=== PATIENT | female | born 1935 | race Hispanic/Latino ===

== ENCOUNTER 2018-01-23 08:02 | Inpatient (IN) | payer MEDICARE ==
[2018-01-23] MEDS ORDERED: ASPIRIN PO ONE (08:13)
[2018-01-23 08:42] LABS: BUN/Creatinine Ratio 17; Blood Urea Nitrogen 17 mg/dL (7-17); Calcium 8.9 mg/dL (8.4-10.2); Hemolysis Index 14
[2018-01-23 08:53] LABS: Basophils % (Auto) 0.5 % (0.0-1.8); Eosinophils # (Auto) 0.1 K/mm3 (0.0-0.4); Eosinophils % (Auto) 2.5 % (0.0-4.3); Hematocrit 44.5 % (30.3-42.9); Hemoglobin 15.4 gm/dl (10.1-14.3); Lymphocytes # (Auto) 1.9 K/mm3 (1.2-5.4); Lymphocytes % (Auto) 33.5 % (13.4-35.0); Mean Corpuscular HGB Conc 35 % (30-34); Mean Corpuscular Hemoglobin 32 pg (28-32); Mean Corpuscular Volume 93 fl (79-97); Monocytes # (Auto) 0.5 K/mm3 (0.0-0.8); Monocytes % (Auto) 8.1 % (0.0-7.3); Platelet Count 168 K/mm3 (140-440); Red Blood Count 4.79 M/mm3 (3.65-5.03); Red Cell Distribution Width 13.7 % (13.2-15.2)
--- NOTE | 2018-01-23 09:17 | Emergency Department Report ---
HPI - General Chief Complaint: Dizziness Time Seen by Provider: 01/23/18 08:41 - HPI HPI: 82-year-old female presents to the emergency department from home with complaint of some vertigo that has been going on since yesterday but worsened this morning. She took some meclizine for her symptoms with some transient relief. She says she noticed it was real bad when she was unable to even read the time on her cell phone which appeared to be spinning. She denies any headache, slurred speech, chest pain, shortness of breath but does have some dizziness and/or weakness. She has a past medical history of asthma, hypertension, GERD and does have a previous episode of this vertigo. She follows with Dr. Queen for primary care and Dr. Shaw for cardiology. She takes Prilosec, Celexa, Coreg and Benicar but did not take these medications yet today. ED Past Medical Hx - Medications Home Medications: Home Medications Medication Instructions Recorded Confirmed Last Taken Type Carvedilol [Coreg] 6.25 mg PO BID 01/23/18 01/23/18 01/22/18 History Citalopram [celeXA] 20 mg PO QDAY 01/23/18 01/23/18 01/22/18 History Meclizine [Antivert] 25 mg PO BID PRN 01/23/18 01/23/18 01/23/18 History Olmesartan/Hydrochlorothiazide 1 tab PO QDAY 01/23/18 01/23/18 01/22/18 History [Benicar HCT 20-12.5 mg] Omeprazole Magnesium [PriLOSEC Otc] 20 mg PO QDAY 01/23/18 01/23/18 Unknown History Trazodone HCl 50 mg PO HS 01/23/18 01/23/18 Unknown History ED Review of Systems ROS: Stated complaint: VERTIGO Other details as noted in HPI Comment: All other systems reviewed and negative Constitutional: weakness. denies: chills, fever Eyes: denies: eye pain, eye discharge, vision change ENT: denies: ear pain, throat pain Respiratory: denies: cough, shortness of breath, wheezing Cardiovascular: denies: chest pain, palpitations Gastrointestinal: denies: abdominal pain, nausea, diarrhea Genitourinary: denies: urgency, dysuria, discharge Musculoskeletal: denies: back pain, joint swelling, arthralgia Skin: denies: rash, lesions Neurological: vertigo, other (dizziness). denies: headache Physical Exam - Physical Exam Vital Signs: Vital Signs 01/23/18 01/23/18 01/23/18 08:22 08:30 08:46 Temperature Pulse Rate 50 L 49 L Respiratory 18 11 L Rate Blood Pressure 135/75 135/75 O2 Sat by Pulse 95 96 Oximetry 01/23/18 08:59 Temperature 97.5 F L Pulse Rate Respiratory Rate Blood Pressure O2 Sat by Pulse Oximetry Physical Exam: GENERAL: The patient is well-developed well-nourished. HENT: Normocephalic. Atraumatic. Patient has moist mucous membranes. EYES: Extraocular motions are intact. Pupils equal reactive to light bilaterally. No nystagmus. NECK: Supple. Trachea is midline. CHEST/LUNGS: Clear to auscultation. There is no respiratory distress noted. HEART/CARDIOVASCULAR: Regular. There is no tachycardia. There is no murmur. ABDOMEN: Abdomen is soft, nontender. Patient has normal bowel sounds. There is no abdominal distention. SKIN: Skin is warm and dry. NEURO: The patient is awake, alert, and oriented. The patient is cooperative. The patient has no focal neurologic deficits. The patient has normal speech. Cranial nerves II through XII grossly intact. MUSCULOSKELETAL: There is no tenderness or deformity. There is no limitation range of motion. There is no evidence of acute injury. ED Course Vital Signs 01/23/18 01/23/18 01/23/18 08:22 08:30 08:46 Temperature Pulse Rate 50 L 49 L Respiratory 18 11 L Rate Blood Pressure 135/75 135/75 O2 Sat by Pulse 95 96 Oximetry 01/23/18 08:59 Temperature 97.5 F L Pulse Rate Respiratory Rate Blood Pressure O2 Sat by Pulse Oximetry - Reevaluation(s) Reevaluation #1: The patient's family has decided that she is feeling better and does not want to stay for admission. The cardiology service saw the patient and felt that she should be admitted as she appeared unstable when they tried to stand her up. I explained to her my reasoning for admission including her sustained bradycardia, her dizziness and feelings of instability. The patient understands that the risks of leaving include falling with possible head trauma , brain bleed, stroke, disability, coma, cardiac arrest and . She has the mental capacity to make medical decisions for herself and despite understanding the risks of leaving AGAINST MEDICAL ADVICE, the patient still wants to do so and has signed the AMA form for us. However she does understand that if she changes her mind about admission or with any change in her condition or with any acute process, that she is welcome to return to the emergency department at any time. 01/23/18 13:12 - Consultations Consultation #1: Patient was seen in the emergency department by [facility] cardiology who felt that her symptoms were most likely not related to her heart but did recommend admission as she appeared unsteady when they were trying to stand her up and walk her around. 01/23/18 14:31 ED Medical Decision Making - Lab Data Result diagrams: 01/23/18 08:19 01/23/18 08:19 - EKG Data -: EKG Interpreted by Oh EKG shows normal: sinus rhythm, axis (left axis deviation), intervals, QRS complexes (left anterior fascicular block, Q waves to the inferior leads), ST-T waves (T-wave inversions to the anterior and inferior leads) Rate: bradycardia (48 bpm) - EKG Data When compared to previous EKG there are: previous EKG unavailable Interpretation: other (sinus bradycardia, left anterior fascicular block, Q waves to the anterior and inferior, t waves to lateral and inferior leads) - Radiology Data Radiology results: report reviewed CT HEAD WITHOUT CONTRAST: HISTORY: Dizziness. TECHNIQUE: Sequential CT images without contrast. FINDINGS: Images obtained show bilateral prominence of the sulci and ventricles. There are no abnormal intra- or extra-axial blood or fluid collections. There are no focal masses or evidence of mass effect. The stover white matter differentiation appears within normal limits. Regions of periventricular decreased attenuation are consistent with microangiopathic ischemic disease. The posterior fossa structures including the fourth ventricle, cerebellum, and brainstem appear normal. IMPRESSION: Evidence of atrophy and microangiopathic ischemic disease. No acute intracranial process noted. Transcribed By: TTR Dictated By: ALAINA DOMINGUEZ JR, MD Electronically Authenticated By: ALAINA DOMINGUEZ JR, MD Signed Date/Time: 01/23/18 0951 - Medical Decision Making Patient presents with a complaint of some vertigo, dizziness. She does not have any obvious focal, motor or sensory deficits. Labs are mostly unremarkable and do not show any etiology of her symptoms. CT of the head without contrast does not show any bleed, shift, mass or any acute process. EKG does not show any ST elevation MO but does show a fascicular block, bradycardia with a heart rate of 48 and some T wave inversions. For this reason I asked for [facility] cardiology to come and see the patient and per the consultation section, they did not necessarily feel it was her heart was causing her symptoms but they did recommend admission as she did appear unsteady to them as well. I have spoken to the hospitalist about admission for this patient and in the interim the patient decided that she did not want to stay in the hospital. As previously discussed, I spent a while talking to the patient and her family giving both mine and cardiology's reasons why she should be admitted. This included the fact that her presentation could be atypical CVA , atypical MO, among other differential diagnoses and leaving could possibly result in syncope, coma, disability or . Since she does have the mental capacity to make medical decisions for herself and understands the risks, she was allowed to leave AGAINST MEDICAL ADVICE. 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 - Differential Diagnosis BPPV, Menieres disease, MO, CVA, TIA Critical Care Time: No Critical care attestation.: If time is entered above; I have spent that time in minutes in the direct care of this critically ill patient, excluding procedure time. ED Disposition Clinical Impression: Dizziness, Vertigo, Bradycardia Disposition: DC-07 LEFT AGAINST MED ADVICE Is pt being admited?: No Condition: Fair Time of Disposition: 12:44
--- NOTE | 2018-01-23 09:59 | Cat Scan Report ---
CT HEAD WITHOUT CONTRAST: HISTORY: Dizziness. TECHNIQUE: Sequential CT images without contrast. FINDINGS: Images obtained show bilateral prominence of the sulci and ventricles. There are no abnormal intra- or extra-axial blood or fluid collections. There are no focal masses or evidence of mass effect. The stover white matter differentiation appears within normal limits. Regions of periventricular decreased attenuation are consistent with microangiopathic ischemic disease. The posterior fossa structures including the fourth ventricle, cerebellum, and brainstem appear normal. IMPRESSION: Evidence of atrophy and microangiopathic ischemic disease. No acute intracranial process noted.
[2018-01-23] MEDS ORDERED: ANTIVERT PO ONE (10:26)
[2018-01-23 11:43] VITALS: BP 136/76
--- NOTE | 2018-01-23 14:35 | Event Note ---
Date: 01/23/18 Detailed cardiology consultation dictated. A: #1: Pre-syncope / ? vertigo - head CT with NAF #2: Sinus bradycardia #3: HTN #4: H/o AV and MV regurgitation #5: H/o orthostatic hypotension P: F/u echo. Hold AV hamlet blocking agents. Obtain orthostatics. TSH WNL. Monitor overnight on telemetry. Junito NICKERSON NP / DR. VARGHESE
[2018-01-23] MEDS ORDERED: HEPARIN SUB-Q SCH (22:00)
--- NOTE | 2018-01-24 01:45 | Consultation ---
REQUESTING PHYSICIAN: Dr. Padilla. CONSULTING PHYSICIAN: Arash Melara MD HISTORY OF PRESENT ILLNESS: This is an 82-year-old female who is now seen in consultation in the Emergency Room because of her history of dizziness, vertigo, and bradycardia for further evaluation and management. History is now obtained from the patient. The patient presented to the Emergency Room with complaints of severe vertigo that has been going on since yesterday morning for further evaluation and management. She did take meclizine. It did give her some relief, but then the symptoms got worse this morning. She felt nauseous, but no vomiting. She did not have any chest pain, but the symptoms got worse and she decided to come to the Emergency Room. The patient stated that anytime she moved her head to the left side or from left to right side, the room would spin. That made her nauseous. So she was afraid to walk. She almost fell couple of times and her was able to hold her that time and prevent fall. She was very dizzy. With this complaint, she presented to the Emergency Room. In the Emergency Room, the patient was noted to be bradycardic. She denied any orthopnea, PND, edema, palpitations, claudications or syncope. No fever, cough, chills. The patient does have a history of hypertension, orthostatic hypotension, gastroesophageal reflux disease and mitral and aortic regurgitation. FAMILY HISTORY: Unremarkable. SOCIAL HISTORY: The patient is . She is a nonsmoker and nonalcoholic. ALLERGIES: PENICILLIN AND SULFA DRUGS. MEDICATIONS: At the time of admission, the patient was on Benicar HCT 20/12.5 mg once daily, carvedilol 3.125 mg twice daily, Celexa 10 mg once daily. The patient also takes Prilosec 20 mg daily, and trazodone 50 mg daily. REVIEW OF SYSTEMS: CARDIOVASCULAR: As described above. RESPIRATORY: The patient ____ wheezing and asthma. No GI or complaints at the present time. PHYSICAL EXAMINATION: GENERAL: This is an 82-year-old white female, well-built, well-nourished, no acute distress at the present time. GENERAL: The patient is conscious, alert, oriented, afebrile. The patient's blood pressure was 135/75, heart rate was 50 per minute and regular. SKIN: Warm and dry. HEENT: Pupils are reactive. NECK: Supple. Both carotids well palpable without evidence of bruit. No JVD. LUNGS: Clear. CARDIOVASCULAR: S1, S2 heard well. Grade 1-2/6 systolic murmur noted at the aortic area and left sternal border. No diastolic murmur or gallop. ABDOMEN: Soft, obese, nontender. Bowel sounds are heard normal. EXTREMITIES: No edema, no calf tenderness. Good pedal pulses. NEUROLOGIC: Grossly within normal limits. RECTAL AND PELVIC EXAMINATIONS: Not done at this time. The patient's EKG done showed sinus bradycardia with nonspecific ST-T abnormalities. The patient's laboratory data showed CBC with a hemoglobin of 15.4 and hematocrit of 44.5, and WBC count of 5500 and platelet count of 168,000. The patient's BMP showed a blood sugar of 138. BUN was 17, creatinine 1.0, sodium 140 and potassium 4.4. The patient had a CT scan of the head done, which showed no evidence of acute findings. EKG showed sinus rhythm with nonspecific ST-T changes. IMPRESSION: 1. Presyncope/vertigo. 2. Sinus bradycardia. 3. Hypertension. 4. History of mitral regurgitation, aortic regurgitation. 5. History of orthostatic hypotension. This is an 82-year-old female who presented to the Emergency Room with sudden onset of severe vertigo type of symptoms for further evaluation and management. At this time, the patient appears reasonably stable. Her vital signs are stable. She is still very unsteady on getting up and trying to walk. Etiology unclear. The EKG showed sinus bradycardia with a nonspecific ST-T changes. We will hold off on the beta estela and monitor for any orthostatic hypotension. The patient was due for an echocardiogram as we have not done it for 2 years. So, we will go ahead and get an echocardiogram to assess the mitral regurgitation. Because of her severe dizziness and vertigo type of symptoms, we suggested that she stay in the hospital overnight for observation until her symptoms resolve to avoid falls, etc. We will also monitor the rhythm closely. PLAN: As per orders. Thank you very much for this consultation, we will follow the patient with you. JOB# [id number] EMERSON/SILVESTRE
== END 2018-01-23 13:30 | disposition left against medical advice (07) | DRG 312 ==
LOC: ED 08:02 → 4A 12:45
PROVIDERS: ADMIT Internal Medicine; ATTEND Internal Medicine
DX: R55 Syncope and collapse (principal); R00.1 Bradycardia, unspecified; R42 Dizziness and giddiness; Z88.0 Allergy status to penicillin; Z88.2 Allergy status to sulfonamides; J45.909 Unspecified asthma, uncomplicated; I10 Essential (primary) hypertension; K21.9 Gastro-esophageal reflux disease without esophagitis
CPT/HCPCS: 36415; 70450; 80048; 84443; 84484; 85025; 93005; 93010